=== PATIENT | female | born 1950 | race Caucasian/White ===

== ENCOUNTER 2021-08-18 19:38 | Inpatient (IN) | payer OTHER ==
[~2021-08-18] VITALS: Ht 152.4 cm; Wt 74.8 kg
[2021-08-18 19:44] VITALS: BP 139/73
[2021-08-18] MEDS ORDERED: TRAMADOL 50 MG50 MG PO (19:49)
[2021-08-18 22:27] LABS: HEMOGLOBIN 16.2 gm/dL (12.0-15.0); PLATELET COUNT 120 thou/uL (150-400); RBC 5.38 mil/uL (4.20-5.00); RDW 13.6 % (10.5-14.5); WBC 2.1 thou/uL (4.0-11.0)
[2021-08-18 22:41] LABS: CREATININE 1.6 mg/dL (0.6-1.0); POTASSIUM 4.2 mmol/L (3.5-5.1)
[2021-08-18 22:48] LABS: APTT 30.8 Seconds (24.5-32.8); INR 0.96; PROTIME 10.5 Seconds (10.5-12.1)
[2021-08-18 22:51] LABS: ALBUMIN 3.5 g/dL (3.4-5.0); TOTAL BILIRUBIN 0.2 mg/dL (0.2-1.0); TOTAL PROTEIN 6.8 g/dL (6.4-8.2)
[2021-08-18 23:03] LABS: ABSOLUTE NEUTROPHILS 1.2 thou/uL (1.4-8.2)
[2021-08-19 05:25] VITALS: BP 127/59
[2021-08-19 09:15] VITALS: BP 119/57
--- NOTE | 2021-08-19 16:11 | EKG ---
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 : 1950 Requested By: William Ag Order Number: [id number] MD: Immanuel Griffith Measurements Intervals [place] Rate: 61 P: 54 SD: 164 QRS: -72 QRSD: 103 T: 23 QT: 447 QTc: 451 Interpretive Statements Sinus rhythm Inferior infarct, old Probable anteroseptal infarct, old No previous ECG available for comparison Electronically Signed On 08-19-2021 16:11:17 TABLE COVER FOLDER by Immanuel Griffith [email or web address] <ELECTRONICALLY SIGNED> By: Immanuel Griffith MD, [facility] 08/19/21 1611 30 30 Immanuel Griffith MD, FAC /EPI
[2021-08-19 18:19] VITALS: BP 97/47
--- NOTE | 2021-08-19 18:47 | NUR ---
1830: THIS RN ASSUMED CARE OF PATIENT AT THIS TIME. PT RESTING IN BED IN NO ACUTE DISTRESS. AOX4. DENIES ACUTE CONCERNS. WILL MONITOR.
[2021-08-19 19:45] VITALS: BP 100/52
[2021-08-20] VITALS: BP 99/50
[2021-08-20 04:00] VITALS: BP 112/58
[2021-08-20 06:31] LABS: MCH 29.6 pg (26.0-34.0); MCHC 32.7 g/dL (28.0-37.0); MCV 90.5 fL (80.0-100.0); PLATELET COUNT 120 thou/uL (150-400); RBC 4.75 mil/uL (4.20-5.00); RDW 13.7 % (10.5-14.5); WBC 2.9 thou/uL (4.0-11.0)
[2021-08-20 06:51] LABS: D-DIMER 0.75 ug/mLFEU (0.19-0.50); INR 0.96; PROTIME 10.5 Seconds (10.5-12.1)
[2021-08-20 06:54] LABS: ANION GAP 10 mmol/L (7-16); BUN 25 mg/dL (7-18); CALCIUM 8.4 mg/dL (8.5-10.1); CHLORIDE 110 mmol/L (98-107); CO2 23 mmol/L (21-32); CREATININE 1.3 mg/dL (0.6-1.0); DIRECT BILIRUBIN < 0.1 mg/dL (<0.1-0.2); GLUCOSE 123 mg/dL (74-106); PHOSPHORUS 3.5 mg/dL (2.5-4.9); POTASSIUM 4.4 mmol/L (3.5-5.1); SGOT 26 U/L (15-37); SGPT 36 U/L (30-65); SODIUM 143 mmol/L (136-145); TOTAL BILIRUBIN 0.1 mg/dL (0.2-1.0)
[2021-08-20 12:10] LABS: ABSOLUTE NEUTROPHILS 2.3 thou/uL (1.4-8.2); ATYPICAL LYMPHS 2 %
[2021-08-20 12:30] VITALS: BP 124/71
[2021-08-20 15:38] VITALS: BP 120/61
[2021-08-20 18:06] LABS: HIV ANTIBODY Non Reactive (Non Reactive)
[2021-08-20] MEDS ORDERED: AMLODIPINE-ATO1 EAC2 PO (22:02)
[2021-08-20] MEDS ORDERED: LIPITOR10 MG PO (22:03)
--- NOTE | 2021-08-20 23:02 | HC ---
[facility] [place] [address] CONSULTATION Name: DAVID DIEHL Room #: 462-P ADM IN M.R.#: [id number] Admission: 08/18/21 Attend Phys: Han Perez MD Discharge: Date of : 50 Report #: [id number] THIS REPORT FOR: cc: Fabien Mariscal MD, Logan F. MD Geha,Leonard Reeves MD ~ DATE OF SERVICE: 08/19/2021 INFECTIOUS DISEASES CONSULTATION REASON FOR CONSULTATION: I was asked to evaluate concerning COVID-19 pneumonia. HISTORY OF PRESENT ILLNESS: The patient is a 70-year-old with underlying history of COPD, hypertension, previous right nephrectomy, who is unvaccinated for COVID-19, presents with a 5-day history of fever, chills, mild headache, nonproductive cough, progressive shortness of breath, taste diversion without further GI complaints. Her weakness and dyspnea worsened and she was brought into the Emergency Room for further evaluation. She is now on 4 liters of oxygen per nasal cannula. No ongoing fever. No rash or arthritis. Denies any history of tuberculosis, HIV infection or hepatitis. She is a long-term smoker and has diagnosis of COPD along with pneumonia. Her living mate also has COVID-19. REVIEW OF SYSTEMS: A 14-point review of system was negative other than what has been described above. PAST MEDICAL HISTORY: COPD, hypertension, hyperlipidemia, nephrolithiasis, nephritis, insomnia, right nephrectomy, tonsillectomy. FAMILY HISTORY: Negative for tuberculosis. SOCIAL HISTORY: Smoker of cigarettes. No significant alcohol or tobacco use. 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 ALLERGIES: CODEINE. MEDICATIONS: As noted on her MAR, which were reviewed. PHYSICAL EXAMINATION: GENERAL: Afebrile and hemodynamically stable. She was alert and cooperative and pleasant, in no acute distress, on 4 liters of oxygen per nasal cannula. Skin without rash or decubitus. No palpable adenopathy. She was mildly obese. HEENT: Eyes without scleral icterus. Mouth without mucositis. NECK: Supple. LUNGS: Few crackles in the bases bilaterally. HEART: Regular, without murmur, gallop or rub. [facility] [address] [place] [address] CONSULTATION Name: DAVID DIEHL Room #: 462-P [facility] IN [facility].#: [id number] Admission: 08/18/21 Attend Phys: Han Perez MD Discharge: Date of : 50 Report #: [id number] ABDOMEN: Soft and nontender. No hepatosplenomegaly or mass. EXTREMITIES: Without peripheral edema, cyanosis, or clubbing. NEUROLOGIC: Cranial nerves intact. Strength in the upper and lower extremities was symmetric and within normal limits. PSYCHIATRIC: Mood without anxiety. SPINE: Nontender. LABORATORY DATA: Reviewed. MICROBIOLOGY: Reviewed. IMAGING: Chest x-ray reviewed. IMPRESSION: A 70-year-old with COVID-19 pneumonia and respiratory failure. Underlying chronic obstructive pulmonary disease. Acute kidney injury with history of right nephrectomy. Hypertension. Leukopenia and thrombocytopenia, likely related to her COVID infection. RECOMMENDATION: We will continue with remdesivir and dexamethasone. If her oxygenation should worsen, we will add Actemra. This plan of care was discussed with the patient, who is in agreement. We will follow serial laboratory studies and chest x-rays. We will continue the patient's treatment in COVID isolation unit for further cardiopulmonary monitoring. <ELECTRONICALLY SIGNED> By: Leonard De Dios MD 08/20/21 2302 1843 14 Leonard De Dios MD /nt
[2021-08-21 03:18] LABS: HEMATOCRIT 43.3 % (37.0-47.0); HEMOGLOBIN 14.1 gm/dL (12.0-15.0); MCH 29.4 pg (26.0-34.0); MCHC 32.5 g/dL (28.0-37.0); MCV 90.6 fL (80.0-100.0); RBC 4.78 mil/uL (4.20-5.00); RDW 13.7 % (10.5-14.5); WBC 3.6 thou/uL (4.0-11.0)
[2021-08-21 04:55] LABS: ALBUMIN 3.3 g/dL (3.4-5.0); ANION GAP 12 mmol/L (7-16); BUN 30 mg/dL (7-18); CHLORIDE 108 mmol/L (98-107); CO2 23 mmol/L (21-32); CREATININE 1.4 mg/dL (0.6-1.0); DIRECT BILIRUBIN < 0.1 mg/dL (<0.1-0.2); GLUCOSE 129 mg/dL (74-106); PHOSPHORUS 3.1 mg/dL (2.5-4.9); POTASSIUM 4.3 mmol/L (3.5-5.1); SGOT 27 U/L (15-37); SGPT 35 U/L (30-65); SODIUM 143 mmol/L (136-145); TOTAL BILIRUBIN 0.2 mg/dL (0.2-1.0); TOTAL PROTEIN 6.3 g/dL (6.4-8.2)
--- NOTE | 2021-08-21 07:32 | NUR ---
admit pt a/o x4 up ad mable lungs diminished on 4 liters o2. o2 sats at 90% on room air. voiding qs. uses call light appropriately continue poc.
[2021-08-21 08:02] VITALS: BP 141/75
--- NOTE | 2021-08-21 12:26 | NUR ---
PATIENT IV INFILTRATED. ONLY RECEIEVED A PARTIAL DOSE OF REMDISIVIR. SPOKE WITH DR. BHAT AND IS OKAY WITH HER NOT REFUSING THE REST OF THE DOSE. ALSO NO NEED TO REPLACE IV WILL BE COMING TO ROUND ON HER SHORTLY
[2021-08-21] MEDS ORDERED: DOXYCYCLINE HYC50 MG PO (13:29)
[2021-08-21] MEDS ORDERED: PREDNISONE 10 M10 M1 PO (13:30)
[2021-08-21 13:46] VITALS: BP 141/75
--- NOTE | 2021-08-21 14:36 | NUR ---
PT ADMITTED RELATED TO COVID AND HYPOXIA. CM REVIEWED CHART AND SPOKE WITH CARE TEAM. CM CALLED AND SPOKE WITH PT VIA PHONE THIS DAY. PT APPEARED TO BE A&O X4. CM ROLE INTRODUCED. PT INDICATED THAT SHE RESIDES IN A HOUSE AND THAT HER EX RESIDES THERE WELL A ROOMMATE. SHE INDICATED THERE IS A RAMP TO ENTER AND NO STEPS SHE NEEDS TO USE INSIDE. 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 PT INDICATED SHE SEES AN GRAIN BUYER AT [facility] IN [place] BUT THAT SHE CAN'T RECALL HER NAME. PT INDICATED SHE ANTICAIPTES DISCHARGING HOME THIS DAY HER ROOMMATE WAS IN WORSE SHAPE THEN SHE IS AND SHE WANTS TO GET HOME TO BE THERE FOR THEIR ANIMALS SO HE CN SEEK MEDICAL ATTENTION. PT IS NOW ON ROOM AIR. PT INDICATED SHE HAD TRANSPORT HOME THIS DAY. CM WAITING TO SEE IF AN EXERCISE OX TEST IS NEEDED PRIOR TO DC. CM FOLLOWING.
[2021-08-23 11:10] LABS: T-SPOT.TB Negative
== END 2021-08-21 14:51 | disposition home or self-care (01) | DRG 177 ==
LOC: ER 19:38 → EROBS 20:54 → 4W 20:54 → EROBS 08-19 01:16 → 4W 08-20 21:36
PROVIDERS: Emergency Medicine; Specialist; ADMIT Hospitalist; ATTEND Hospitalist
PROC: XW033E5 Introduction of Remdesivir Anti-infective into Peripheral Vein, Percutaneous Approach, New Technology Group 5 (ICD-10-PCS; principal; 2021-08-19)
DX: U07.1 COVID-19 (principal); J12.82 Pneumonia due to coronavirus disease 2019; J96.01 Acute respiratory failure with hypoxia; N17.9 Acute kidney failure, unspecified; J44.1 Chronic obstructive pulmonary disease with (acute) exacerbation; J44.0 Chronic obstructive pulmonary disease with (acute) lower respiratory infection; D72.819 Decreased white blood cell count, unspecified; D69.6 Thrombocytopenia, unspecified; N18.9 Chronic kidney disease, unspecified; E78.5 Hyperlipidemia, unspecified; G47.00 Insomnia, unspecified; F17.210 Nicotine dependence, cigarettes, uncomplicated; Z90.5 Acquired absence of kidney; Z88.6 Allergy status to analgesic agent; Z87.442 Personal history of urinary calculi; Z71.6 Tobacco abuse counseling
CPT/HCPCS: 10045